=== PATIENT | female | born 1990 | race Caucasian/White ===

== ENCOUNTER 2024-03-09 17:53 | Emergency (ER) | payer OTHER ==
[~2024-03-09] VITALS: Ht 154.9 cm; Wt 63.5 kg
[2024-03-09 18:07] VITALS: O2SAT 99
[2024-03-09] MEDS: ONDANSETRON HCL 4MG/2ML INJ IV ONE (19:10)
[2024-03-09] MEDS: SODIUM CHLORIDE 0.9% 1,000 ML IV ONE (19:10)
[2024-03-09] MEDS: DICYCLOMINE HCL 10MG/ML 2ML VIAL IM ONE (19:10)
[2024-03-09] MEDS: FAMOTIDINE 20MG/2ML VIAL IV ONE (19:16)
[2024-03-09 19:23] LABS: BASOPHILS % 0.2 % (0.0-2.0); EOSINOPHILS % 0.8 % (0.0-5.0); HEMATOCRIT. 34.8 % (36.0-48.0); HEMOGLOBIN. 11.2 g/dL (12.0-16.0); LYMPHOCYTES % 28.6 % (20.0-50.0); MEAN CORPUSCULAR HEMOGLOBIN 24.7 pg (28.0-32.0); MEAN CORPUSCULAR HGB CONC 32.1 g/dL (31.0-37.0); MEAN PLATELET VOLUME 8.6 fl (7.4-10.4); MONOCYTES % 5.5 % (2.0-8.0); NEUTROPHILS % 64.9 % (40.0-76.0); PLATELET 375 x1000/uL (130-400); RED BLOOD CELL COUNT 4.51 mill/uL (4.2-5.4); RED CELL DISTRIBUTION WIDTH 26.8 % (11.6-14.6); WHITE BLOOD COUNT 5.7 x1000/uL (4.5-11.0)
[2024-03-09 19:27] LABS: DIFFERENTIAL COMMENT 1
[2024-03-09 19:30] LABS: CHLORIDE 106 mEq/L (98-107); POTASSIUM 3.7 mEq/L (3.5-5.1); SODIUM 140 mEq/L (136-145)
[2024-03-09 19:31] LABS: CALCIUM 9.5 mg/dL (8.7-10.4); CARBON DIOXIDE 26 mEq/L (21-32)
[2024-03-09 19:36] LABS: CREATININE 0.8 mg/dL (0.6-1.0); GLUCOSE 102 mg/dL (70-105); HCG SCREEN NEGATIVE
[2024-03-09 19:37] LABS: UREA NITROGEN BLOOD 11 mg/dL (9-23)
[2024-03-09 19:38] LABS: ALANINE AMINOTRANSFERASE 14 IU/L (10-49); ALBUMIN 4.8 g/dL (3.2-4.8); ASPARTATE AMINOTRANSFERASE 24 IU/L (<34)
[2024-03-09 19:39] LABS: BILIRUBIN TOTAL 0.2 mg/dL (0.1-1.0); PROTEIN TOTAL 7.6 g/dL (6.0-8.3)
[2024-03-09 19:54] LABS: BILIRUBIN DIRECT < 0.1 mg/dL (<=3.0); ETHANOL BLOOD < 10 mg/dL (<10)
[2024-03-09] MEDS ORDERED: ONDA-239 PO (22:25)
[2024-03-09] MEDS ORDERED: FAMO-135 MT (22:25)
[2024-03-10 01:00] VITALS: BP 107/77; PULSE 61; RESP 18; TEMP 36.61404; O2SAT 100
== END 2024-03-10 01:05 | disposition home or self-care (01) ==
LOC: ER 17:53
DX: K29.70 Gastritis, unspecified, without bleeding (principal)
CPT/HCPCS: 80076; 80048; 80320; 84703; 83690; 85025; 36415; 96361; 96372; 96374; 96375; 99284; J0500; J3490; J2405; J7030; G0480